=== PATIENT | female | born 1950 | race Caucasian/White ===

== ENCOUNTER 2023-09-22 15:23 | Emergency (ER) | payer MEDICARE, BC ==
[2023-09-22] MEDS ORDERED: Acetaminophen 500 MG Tab PO ONE (18:18)
== END 2023-09-22 19:16 | disposition home or self-care (01) ==
LOC: DL.ED 15:23
DX: S76.311A Strain of muscle, fascia and tendon of the posterior muscle group at thigh level, right thigh, initial encounter (principal); Z88.2 Allergy status to sulfonamides; W18.30XA Fall on same level, unspecified, initial encounter
CPT/HCPCS: 99282; 99283; A9270-GY